=== PATIENT | female | born 1950 | race Caucasian/White ===

== ENCOUNTER 2021-02-06 17:59 | Inpatient (IN) | payer OTHER ==
[~2021-02-06] VITALS: Ht 157.5 cm; Wt 64.4 kg
--- NOTE | ~2021-02-06 | CON ---
[address] [address] CONSULTATION Name: WYATTGAYLA Room: [address] IN M.R.#: [id number] Admission: 02/06/21 Attend Phys: Wolfgang Avendaño MD Discharge: Date of : 54 Report #: [id number] THIS REPORT FOR: cc: Lesli Madrid Maggie M. DO Khosla, Parveen K. MD ~ DATE OF CONSULTATION: 02/08/2021 HISTORY OF PRESENT ILLNESS: This is a 70-year-old female patient who was evaluated by me for the possibility of MS. The patient gives a history that she was diagnosed with MS in 70s. Her symptoms were she was having some tingling and numbness all over the body. They did not have MRIs done and they did a spinal tap and they diagnosed her with MS. In fact, she never had an MRI in her life according to history. She gets symptoms, which are mainly tingling and numbness and she had four of those episodes, but the present episode she is complaining of dizziness. She said she got some steroids and she is completely back to her baseline now. It is difficult to tell about her capability to ambulate. She says she was walking normally until about 12 days ago, but the daughter says that she had some ambulation difficulty even before, but she was able to walk. She lives with her and she said she was able to take care of herself. She has no history of optic neuritis or any other difficulty. She has a history of MS, GERD, hyperlipidemia, hypothyroidism. Now, she is having dizziness, which she describes as MS flare. She also had some generalized weakness. She had UTIs in the past. Dizziness was worse with movement of the neck, but today she tells me she is pretty much back to normal. She had some iritis on the right eye and has no vision there. Left eye, she can see reasonably well. She has a history of question of stroke as per chart, she denies any clinical history, it was question of chart, but that history is not clear by taking the history. She has a history of hyperlipidemia, hypothyroidism. She is not complaining of any cardiac, respiratory, GI, , musculoskeletal, constitutional, dermatological, hematological, psychiatric, throat, allergic symptom associated with present symptomatology. In fact, she says she is back to her normal. PAST MEDICAL HISTORY: Positive for MS, but the history is pretty sketchy. FAMILY HISTORY: Unremarkable. SOCIAL HISTORY: She says she does not smoke or drink alcohol. PHYSICAL EXAMINATION: NEUROLOGIC: The patient's examination indicate that she is alert. She is responsive. She is able to follow simple and complex commands. She is competent to make her decision. Her speech looks intact. She believes her memory and fund of knowledge is at her baseline. [place] [address] CONSULTATION Name: GAYLA SCHNEIDER Room: [address] IN ..#: [id number] Admission: 02/06/21 Attend Phys: Wolfgang Avendaño MD Discharge: Date of : 54 Report #: [id number] positive for right eye problems. She does appear to have reasonable and symmetrical strength in all 4 extremities. It appeared to be normal to me, but I do not know what the normal is. She did pretty well with a sensation on both touch and position sense. Reflexes are elicitable in the lower extremities. Both plantars are mute. She does not appear to have any cerebellar sign. I could not look at the fundus in the left eye. There is no meningeal sign. CARDIAC: Unremarkable. LUNGS: No respiratory difficulty was noted. Her hearing and vision is adequate. There is no edema. VITAL SIGNS: Blood pressure is 173/74, respiratios 14, pulse is 69, temperature is 97.2. LABORATORY DATA: White count was 8.8 when she was admitted and 11.9 now. GFR is normal at 99. IMPRESSION AND PLAN: This patient presents with a history of MS. I am not convinced how established the diagnosis is. The patient does have some periventricular shadows on the CT scan and that may be consistent with MS. I had a long talk with this patient. I discussed with her that the next step should be doing an MRI of the brain and the spine with and without contrast to confirm the diagnosis of MS and see if there active lesion. Only then a treatment can be rationally planned. She is pretty adamant that she is not going to have the MRI done. She does not think there is any need for it. In this circumstances, I do not know what can be done. I did order a vitamin D on her and that can be replaced if vitamin D is low. I did order a vitamin B12 and that can be replaced if that is low, She is getting Solu-Medrol of 125 mg every 8 hourly. A typical dose for MS is about 1000 mg, but I do not know how can we establish the diagnosis of MS if the patient keeps refusing this workup. She feels remarkably better with a steroid, but many other things can become better with the steroids also including vestibular neuronitis. I think we can give steroids for a couple of days then put her on oral taper and see how she does with physical and occupational therapy tomorrow. Thank you very much for this referral and Dr. Miner will follow up this patient with you from tomorrow. By: [id number] [id number] Oneal MD /nt
[2021-02-06 18:16] VITALS: BP 156/93
[2021-02-06] MEDS ORDERED: LEVO-T100 MCG PO (18:21)
[2021-02-06] MEDS ORDERED: PRAVASTATIN SOD20 MG PO (18:21)
[2021-02-06 18:32] LABS: ABSOLUTE BASOPHILS 0.1 thou/uL (0.0-0.2); ABSOLUTE EOSINOPHILS 0.1 thou/uL (0.0-0.7); ABSOLUTE LYMPHOCYTES 1.8 thou/uL (0.8-5.3); ABSOLUTE MONOCYTES 0.6 thou/uL (0.0-1.2); ABSOLUTE NEUTROPHILS 6.1 thou/uL (1.6-8.1); BASOPHILS 0.9 %; EOSINOPHILS 1.3 %; HEMATOCRIT 45.7 % (37.0-47.0); HEMOGLOBIN 15.5 gm/dL (12.0-15.0); LYMPHOCYTES 20.9 %; MCH 29.7 pg (26.0-34.0); MCHC 33.9 g/dL (28.0-37.0); MCV 87.7 fL (80.0-100.0); MONOCYTES 7.4 %; MPV 8.6 fl. (7.2-11.1); NUCLEATED RBCS 0 /100WBC; PLATELET COUNT* 353 thou/uL (150-400); POLYS 69.5 %; RDW-CV 13.5 % (10.5-14.5); WBC 8.8 thou/uL (4.0-11.0)
[2021-02-06 18:42] LABS: CREATININE 0.6 mg/dL (0.6-1.3); POTASSIUM 3.2 mmol/L (3.5-5.1)
[2021-02-06 18:45] LABS: PROTIME 10.1 Seconds (9.20-11.50)
[2021-02-06 18:53] LABS: ALBUMIN 3.8 g/dL (3.4-5.0); TOTAL BILIRUBIN 0.8 mg/dL (<0.1-1.0); TOTAL PROTEIN 7.7 g/dL (6.4-8.2)
[2021-02-06 20:04] LABS: AMP/METHAMP Negative (Negative); BARBITURATES Negative (Negative); BENZODIAZEPINES Negative (Negative); COCAINE Negative (Negative); METHADONE Negative (Negative); OPIATES Negative (Negative); PCP Negative (Negative); THC Negative (Negative)
[2021-02-06 20:09] LABS: URINE BILIRUBIN NEGATIVE (Negative); URINE BLOOD NEGATIVE (Negative); URINE CLARITY CLEAR; URINE COLOR ORANGE; URINE GLUCOSE-RANDOM TRACE (Negative); URINE KETONES NEGATIVE (Negative); URINE LEUKOCYTES-REFLEX NEGATIVE (Negative); URINE NITRITE-REFLEX POSITIVE (Negative); URINE PROTEIN TRACE (Negative); URINE SPECIFIC GRAVITY 1.015 (1.005-1.030)
[2021-02-06 20:19] LABS: BACTERIA-REFLEX 1-9 Few /HPF (None Seen); CASTS None Seen /LPF (None Seen); CRYSTALS None Seen /LPF (None Seen); MUCUS 0-3 Light strn/LPF (None Seen); SQUAMOUS 0-3 Few /LPF (0-3); URINE RBC 0-2 Rare /HPF (0-2); URINE WBC-REFLEX 0-5 Rare /HPF (0-5)
[2021-02-07] VITALS (7 sets, daily range): BP systolic 135–177; BP diastolic 60–69
--- NOTE | 2021-02-07 08:50 | EKG ---
[place] [address] ELECTROCARDIOGRAM REPORT Name: WYATTDIAZ WEINBERGMARILYN Guerrero Room: [place] [address] ADM IN [facility]#: [id number] Admission: 02/06/21 Attend Phys: Wolfgang Avendaño, Discharge: Date of : 54 Date of Service: 02/06/21 183 Report #: [id number] THIS REPORT FOR: //name// [facility] ED Test Date: 2021-02-06 Test Time: 18:38:00 Pat Name: GAYLA SCHNEIDER Department: Room: [facility] Gender: F Donor Support Technician: : 1950 Requested By: Emile Grant Order Number: [id number] MD: Srinath Caceres Measurements Intervals [place] Rate: 66 P: 10 NM: 178 QRS: -10 QRSD: 96 T: 29 QT: 440 QTc: 461 Interpretive Statements Sinus rhythm No previous ECG available for comparison Electronically Signed On 02-07-2021 8:50:00 [employer] by Srinath Caceres [email or web address] <ELECTRONICALLY SIGNED> By: Srinath Caceres MD, [facility] 02/07/21 0850 [id number] 1838 Srinath Caceres MD, [facility] /EPI
[2021-02-07] MEDS ORDERED: ASPIRIN325 PO (22:28)
[2021-02-07] MEDS ORDERED: TYLENOL EXTRA500 MG PO (22:30)
[2021-02-08 04:12] LABS: HEMATOCRIT 42.1 % (37.0-47.0); HEMOGLOBIN 14.2 gm/dL (12.0-15.0); MCH 29.8 pg (26.0-34.0); MCHC 33.7 g/dL (28.0-37.0); MCV 88.3 fL (80.0-100.0); MPV 8.4 fl. (7.2-11.1); RBC 4.78 mil/uL (4.20-5.00); RDW-CV 13.4 % (10.5-14.5); WBC 11.9 thou/uL (4.0-11.0)
[2021-02-08 04:20] LABS: CALCIUM 8.7 mg/dL (8.5-10.1); CREATININE 0.6 mg/dL (0.6-1.3); POTASSIUM 3.5 mmol/L (3.5-5.1)
[2021-02-08 08:00] VITALS: BP 173/74
[2021-02-09 03:46] VITALS: BP 154/61
[2021-02-09 04:07] LABS: HEMATOCRIT 41.6 % (37.0-47.0); HEMOGLOBIN 13.8 gm/dL (12.0-15.0); MCH 29.4 pg (26.0-34.0); MCHC 33.2 g/dL (28.0-37.0); MCV 88.5 fL (80.0-100.0); MPV 9.1 fl. (7.2-11.1); RBC 4.7 mil/uL (4.20-5.00); RDW-CV 13.3 % (10.5-14.5); WBC 15.2 thou/uL (4.0-11.0)
[2021-02-09 04:23] LABS: CALCIUM 8.4 mg/dL (8.5-10.1); CREATININE 0.6 mg/dL (0.6-1.3); POTASSIUM 3.2 mmol/L (3.5-5.1)
[2021-02-09 09:36] VITALS: BP 157/63
[2021-02-09 16:33] VITALS: BP 120/72
[2021-02-09 20:35] VITALS: BP 160/88
[2021-02-10 04:23] LABS: HEMOGLOBIN 14.4 gm/dL (12.0-15.0); MCH 29.6 pg (26.0-34.0); MCHC 33.4 g/dL (28.0-37.0); MCV 88.5 fL (80.0-100.0); MPV 8.9 fl. (7.2-11.1); RBC 4.86 mil/uL (4.20-5.00); RDW-CV 13.7 % (10.5-14.5); WBC 14.8 thou/uL (4.0-11.0)
[2021-02-10 04:39] LABS: CALCIUM 8.6 mg/dL (8.5-10.1); CREATININE 0.7 mg/dL (0.6-1.3); POTASSIUM 3.2 mmol/L (3.5-5.1)
[2021-02-10 08:00] VITALS: BP 122/68
[2021-02-10 16:28] VITALS: BP 147/66
[2021-02-10 20:00] VITALS: BP 156/80
[2021-02-11 05:46] LABS: HEMATOCRIT 43.7 % (37.0-47.0); HEMOGLOBIN 14.3 gm/dL (12.0-15.0); MCH 28.9 pg (26.0-34.0); MCHC 32.6 g/dL (28.0-37.0); MCV 88.5 fL (80.0-100.0); MPV 8.4 fl. (7.2-11.1); RBC 4.94 mil/uL (4.20-5.00); RDW-CV 13.3 % (10.5-14.5); WBC 13.7 thou/uL (4.0-11.0)
[2021-02-11 06:04] LABS: CREATININE 0.6 mg/dL (0.6-1.3)
[2021-02-11 06:09] LABS: POTASSIUM 2.4 mmol/L (3.5-5.1)
[2021-02-11 09:00] VITALS: BP 162/87
[2021-02-11 16:21] VITALS: BP 150/78
[2021-02-12 08:15] VITALS: BP 147/52
[2021-02-12 13:56] LABS: MCH 29.1 pg (26.0-34.0); MCHC 33.3 g/dL (28.0-37.0); MCV 87.3 fL (80.0-100.0); MPV 8.9 fl. (7.2-11.1); NUCLEATED RBCS 0 /100WBC; PLATELET COUNT* 380 thou/uL (150-400); RBC 5.15 mil/uL (4.20-5.00); RDW-CV 13.5 % (10.5-14.5); WBC 15.1 thou/uL (4.0-11.0)
[2021-02-12 14:05] LABS: ALBUMIN 3.2 g/dL (3.4-5.0); CALCIUM 8.5 mg/dL (8.5-10.1); CREATININE 0.8 mg/dL (0.6-1.3); MAGNESIUM 2.4 mg/dL (1.8-2.4); POTASSIUM 3.7 mmol/L (3.5-5.1); TOTAL BILIRUBIN 0.4 mg/dL (<0.1-1.0); TOTAL PROTEIN 6.7 g/dL (6.4-8.2)
[2021-02-12 14:44] LABS: ABSOLUTE LYMPHOCYTES 0.5 thou/uL (0.8-5.3); ABSOLUTE NEUTROPHILS 14.6 thou/uL (1.6-8.1)
[2021-02-12 14:45] LABS: PLATELET ESTIMATE ADEQUATE
[2021-02-12 16:00] VITALS: BP 153/72
[2021-02-12 18:06] LABS: ANA INTERPRETATION Negative (())
[2021-02-13 08:05] VITALS: BP 158/87
[2021-02-13 16:05] VITALS: BP 153/70
[2021-02-13 20:30] VITALS: BP 131/76
[2021-02-14 08:00] VITALS: BP 172/69
[2021-02-14] MEDS ORDERED: LORAZEPAM 1 MG T1 MG PO (14:38)
[2021-02-14] MEDS ORDERED: CEFDINIR300 MG PO (14:38)
[2021-02-14] MEDS ORDERED: MECLIZINE HCL25 MG PO (14:38)
[2021-02-14] MEDS ORDERED: FLEXERIL PO (14:38)
[2021-02-14] MEDS ORDERED: PREDNISONE 20 M20 MG PO (14:38)
[2021-02-14] MEDS ORDERED: VITAMIN D325 MC2 PO (14:38)
[2021-02-14 18:03] VITALS: BP 132/78
[2021-02-14 20:00] VITALS: BP 143/82
[2021-02-15 08:00] VITALS: BP 155/53
== END 2021-02-15 15:00 | DRG 59 ==
LOC: M.ERS 17:59 → M.3W 20:46 → M.TBA-ER 20:46 → M.3W 02-07 15:17
PROVIDERS: Family Medicine; Internal Medicine; Nurse Practitioner Family; Psychiatry & Neurology Neuromuscular Medicine; ADMIT Internal Medicine; ATTEND Internal Medicine
DX: G35 Multiple sclerosis (principal); N30.00 Acute cystitis without hematuria; Z20.822 Contact with and (suspected) exposure to COVID-19; E78.5 Hyperlipidemia, unspecified; E03.9 Hypothyroidism, unspecified; E87.6 Hypokalemia; F10.10 Alcohol abuse, uncomplicated; H81.13 Benign paroxysmal vertigo, bilateral; F41.9 Anxiety disorder, unspecified; H81.23 Vestibular neuronitis, bilateral; Z98.49 Cataract extraction status, unspecified eye; Z86.73 Personal history of transient ischemic attack (TIA), and cerebral infarction without residual deficits; Z88.1 Allergy status to other antibiotic agents; Z88.2 Allergy status to sulfonamides; Z85.850 Personal history of malignant neoplasm of thyroid